=== PATIENT | female | born 2000 | race African-American/Black ===

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

== ENCOUNTER 2019-08-25 15:26 | Emergency (ER) | payer MEDICAID ==
[~2019-08-25] VITALS: Ht 162.6 cm; Wt 55.0 kg
[2019-08-25] MEDS ORDERED: IBUPROFEN 600MG TABLET PO ONE (16:00)
[2019-08-25 17:14] VITALS: BP 116/80
== END 2019-08-25 17:15 | disposition home or self-care (01) ==
LOC: ER 15:26
DX: J34.89 Other specified disorders of nose and nasal sinuses (principal); M54.9 Dorsalgia, unspecified; J45.909 Unspecified asthma, uncomplicated; V49.9XXA Car occupant (driver) (passenger) injured in unspecified traffic accident, initial encounter; Y93.9 Activity, unspecified; Y92.410 Unspecified street and highway as the place of occurrence of the external cause
CPT/HCPCS: 70160; 81025; 99283

== ENCOUNTER 2020-05-27 21:28 | Emergency (ER) | payer MEDICAID ==
[~2020-05-27] VITALS: Ht 165.1 cm; Wt 69.0 kg
[2020-05-27 21:32] VITALS: BP 169/100
== END 2020-05-28 01:54 | disposition home or self-care (01) ==
LOC: ER 21:28
DX: M25.511 Pain in right shoulder (principal); Z53.21 Procedure and treatment not carried out due to patient leaving prior to being seen by health care provider
CPT/HCPCS: 93005